=== PATIENT | male | born 1945 | race Caucasian/White ===

== ENCOUNTER 2018-01-17 09:07 | Day surgery (SDC) | payer OTHER, BC ==
[2018-01-08 15:48] VITALS: BMI 31.6
[2018-01-17] MEDS: TROPICAMIDE 1% OPHTH SOLN 15 ML BOTTLE ONE ×3 (09:50→10:00)
[2018-01-17] MEDS: PHENYLEPHRINE 2.5% OPHTH SOLN 15 ML BOTTLE ONE ×3 (09:50→10:00)
[2018-01-17] MEDS: CIPROFLOXACIN 0.3% EYE DROPS 5 ML BOTTLE ONE ×3 (09:50→10:00)
[2018-01-17] MEDS: CYCLOPENTOLATE 2% OPHTH SOLN 2 ML BOTTLE ONE ×3 (09:50→10:00)
[2018-01-17] MEDS ORDERED: MIDAZOLAM HCL 2 MG/2 ML SINGLE DOSE VIAL ONE (11:12)
[2018-01-17] MEDS ORDERED: CARBACHOL 0.01% INTRA-OCULAR 1.5 ML VIAL ONE (11:21)
[2018-01-17] MEDS ORDERED: NEO/POLYMYX B SULF/DEXAMETH OPHTHALMIC 5ML BOTTLE ONE (11:21)
[2018-01-17] MEDS ORDERED: BSS (NA/CA/MG/K) BALANCED SALT SOLUTION OPHTH SOLN 15 ML BOTTLE ONE (11:21)
[2018-01-17 12:46] VITALS: TEMP 98.1
[2018-01-17 13:12] VITALS: BP 123/59; PULSE 59
--- NOTE | 2018-01-17 13:19 | OP ---
DATE OF OPERATION: 01/17/2018 OPERATIVE PROCEDURE: Lens phacoemulsification with posterior chamber intraocular lens placement, right eye. PREOPERATIVE DIAGNOSIS: Visually significant cataract of right eye. POSTOPERATIVE DIAGNOSIS: Visually significant cataract of right eye. SURGEON: Ba Womack MD ANESTHESIA: MAC. PROCEDURE: The patient was brought to the operating room and placed under monitored anesthesia care by Anesthesia. A drop of tetracaine was then placed over the right eye. The patient was then prepped and draped in the usual sterile manner. A speculum was then placed over the right eye. The eye was then well irrigated with copious amounts of BSS (balanced salt solution). The operating microscope was then moved into position. A paracentesis was performed using a 15-degree blade. At this point 0.5 mL of 1% preservative-free lidocaine was injected into the anterior chamber. Amvisc Plus was then injected into the anterior chamber. A clear corneal incision was then formed using a 2.2-mm keratome. A capsulorrhexis was then performed in a continuous circular fashion beginning with a cystotome completed with an Utratas forceps. Hydrodissection was then performed using BSS on a cannula. The phaco probe was then introduced through the corneal wound and the cataract was removed using the phaco chop technique. Approximately 3 seconds of absolute phaco time was used. The remaining cortex was then removed using irrigation and aspiration with an I/A probe. The capsule was then filled with regular Amvisc and the capsule was noted to be intact. A previously selected foldable posterior chamber intraocular lens was then injected into the capsule through the corneal wound using a lens injector. It was then dialed into position using a Sinskey hook. The Amvisc was then removed using irrigation and aspiration. Miostat was then injected through the paracentesis to constrict the pupil. The paracentesis and corneal wound were then hydrated and noted to be watertight. A drop of Maxitrol was then placed over the eye. The speculum was removed and clear shield was taped over the eye. The patient tolerated the procedure well and there were no surgical complications. The patient was asked to follow up in my office the next day. BA WOMACK M.D. [id number]
== END 2018-01-17 13:10 | disposition home or self-care (01) ==
LOC: FASU 09:07
PROVIDERS: ATTEND Ophthalmology
PROC: 08RJ3JZ Replacement of Right Lens with Synthetic Substitute, Percutaneous Approach (ICD-10-PCS; principal; 2018-01-17 10:30)
DX: H26.8 Other specified cataract (principal)

== ENCOUNTER 2018-03-07 06:25 | Day surgery (SDC) | payer OTHER, BC ==
[2018-03-05 09:39] VITALS: BMI 31.6
[2018-03-07] MEDS ORDERED: TETRACAINE 0.5% OPHTH SOLN 2 ML BOTTLE ONE (07:17)
[2018-03-07] MEDS ORDERED: LIDOCAINE 1% P/F 10 MG/ML VIAL ONE (07:17)
[2018-03-07] MEDS ORDERED: BSS (NA/CA/MG/K) BALANCED SALT SOLUTION OPHTH SOLN 15 ML BOTTLE ONE (07:17)
[2018-03-07] MEDS ORDERED: CARBACHOL 0.01% INTRA-OCULAR 1.5 ML VIAL ONE (07:18)
[2018-03-07] MEDS ORDERED: EPINEPHrine/PF 1 MG/1 ML (1:1,000) AMPULE ONE (07:18)
[2018-03-07] MEDS ORDERED: NEO/POLYMYX B SULF/DEXAMETH OPHTHALMIC 5ML BOTTLE ONE (07:18)
[2018-03-07] MEDS: TROPICAMIDE 1% OPHTH SOLN 15 ML BOTTLE ONE ×3 (07:20→07:30)
[2018-03-07] MEDS: CIPROFLOXACIN 0.3% EYE DROPS 5 ML BOTTLE ONE ×3 (07:20→07:30)
[2018-03-07] MEDS: PHENYLEPHRINE 2.5% OPHTH SOLN 15 ML BOTTLE ONE ×3 (07:20→07:30)
[2018-03-07] MEDS: CYCLOPENTOLATE 2% OPHTH SOLN 2 ML BOTTLE ONE ×3 (07:20→07:30)
[2018-03-07] MEDS ORDERED: MIDAZOLAM HCL 2 MG/2 ML SINGLE DOSE VIAL ONE (08:05)
[2018-03-07 08:51] VITALS: TEMP 98.3
--- NOTE | 2018-03-07 09:02 | OP ---
DATE OF OPERATION: 03/07/2018 OPERATIVE PROCEDURE: Lens Phacoemulsification with Posterior Chamber Intraocular Lens Placement, Right Eye PREOPERATIVE DIAGNOSIS: Visually Significant Cataract of Right Eye POSTOPERATIVE DIAGNOSIS: Visually Significant Cataract of Right Eye SURGEON: Ba Womack M.D. ANESTHESIA: MAC ANESTHESIOLOGIST: PROCEDURE: The patient was brought to the operating room and placed under monitored anesthesia care by Anesthesia. A drop of Tetracaine was then placed over the right eye. The patient was then prepped and draped in the usual sterile manner. A speculum was then placed over the right eye. The eye was then well irrigated with copious amounts of BSS (balanced salt solution). The operating microscope was then moved into position. A paracentesis was performed using a 15 degree blade. At this point 0.5 mL of 1% preservative free-lidocaine was injected into the anterior chamber. Amvisc plus was then injected into the anterior chamber. A clear corneal incision was then formed using a 2.2 mm keratome. A capsulorrhexis was then performed in a continuous circular fashion beginning with a cystotome completed with an Utratas forceps. Hydrodissection was then performed using BSS on a cannula. The phaco probe was then introduced through the corneal wound and the cataract was removed using the phaco chop technique. Approximately 3 seconds of absolute phaco time was used. The remaining cortex was then removed using irrigation and aspiration with an I/A probe. The capsule was then filled with regular Amvisc and the capsule was noted to be intact. A previously selected foldable posterior chamber intraocular lens was then injected into the capsule through the corneal wound using a lens injector. It was then dialed into position using a Sinskey hook. The Amvisc was then removed using irrigation and aspiration. Miostat was then injected through the paracentesis to constrict the pupil. The paracentesis and corneal wound were then hydrated and noted to be water tight. A drop of Maxitrol was then placed over the eye. The speculum was removed and clear shield was taped over the eye. The patient tolerated the procedure well and there were no surgical complications. The patient was asked to follow up in my office the next day. BA WOMACK M.D. [id number]
[2018-03-07 09:19] VITALS: BP 127/78; PULSE 84
[2018-03-07] MEDS ORDERED: ACETAMINOPHEN 325 MG TABLET (FP) PO PRN (12:36)
[2018-03-07] MEDS ORDERED: ONDANSETRON 4 MG/2 ML VIAL IVPUSH PRN (12:36)
[2018-03-07] MEDS ORDERED: LACTATED RINGERS SOLUTION 1,000 ML IV SCH (12:45)
== END 2018-03-07 09:15 | disposition home or self-care (01) ==
LOC: FASU 06:25
PROVIDERS: ATTEND Ophthalmology
PROC: 08RJ3JZ Replacement of Right Lens with Synthetic Substitute, Percutaneous Approach (ICD-10-PCS; principal; 2018-03-07 08:21)
DX: H26.8 Other specified cataract (principal)

== ENCOUNTER 2024-08-25 19:01 | Inpatient (IN) | payer OTHER, BC ==
[2024-08-25 20:25] LABS: BASO % 0.5 % (0-2.0); HEMATOCRIT 34.2 % (35.4-49); HEMOGLOBIN 11.2 GM/dL (11.7-16.9); LYMPH % 8.8 % (8-40); MCH 31.4 pg (25.7-33.7); MCHC 32.7 g/dl (32.0-35.9); MEAN CELL VOLUME 95.8 fl (80-96); MEAN PLT VOLUME 7.3 fl (7.5-11.1); MONO % 7.4 % (3.8-10.2); NEUT % 82.3 % (42.8-82.8); PLATELET COUNT 313 10^3/uL (134-434); RBC 3.57 M/mm3 (4.00-5.60); RDW 14.4 % (11.9-15.9); WHITE BLOOD COUNT 13.7 K/mm3 (4.0-10.0)
[2024-08-25 20:36] LABS: INR 1.47 (0.83-1.09); PROTHROMBIN TIME (PATIENT) 16.4 SEC (9.7-13.0)
[2024-08-25 20:39] LABS: ACTIVATED PTT 30.9 SECONDS (25.2-36.5)
[2024-08-25 20:49] LABS: POTASSIUM 4.6 mmol/L (3.5-5.1)
[2024-08-25 20:51] LABS: CALCIUM 9.5 mg/dL (8.5-10.1)
[2024-08-25 20:52] LABS: ALBUMIN 3.5 g/dl (3.4-5.0); BLOOD UREA NITROGEN 29.8 mg/dL (7-18)
[2024-08-25 20:55] LABS: CREATININE 0.9 mg/dL (0.55-1.3)
[2024-08-25 20:56] LABS: BILIRUBIN,TOTAL 0.6 mg/dL (0.2-1); TOT PROT 6.4 g/dl (6.4-8.2)
[2024-08-25 21:00] LABS: N-TERMINAL BNP 511.5 pg/ml (5-450)
[2024-08-25] MEDS ORDERED: ACETAMINOPHEN INJECTION 100 ML ONE (21:22)
[2024-08-25] MEDS: ACETAMINOPHEN 1000 MG/100 ML BAG IVPB ONE (21:27)
[2024-08-25] MEDS: SODIUM CHLORIDE 0.9% 500 ML INFUS.BAG IV ONE (21:27)
[2024-08-25] MEDS ORDERED: KETOROLAC TROMETHAMINE 15 MG/ML VIAL ONE (22:36)
[2024-08-25] MEDS: KETOROLAC TROMETHAMINE 15 MG/ML VIAL IVPUSH ONE (22:43)
[2024-08-26] MEDS ORDERED: oxyCODONE HCL 5 MG TABLET ONE (01:48)
[2024-08-26] MEDS: oxyCODONE HCL 5 MG TABLET PO ONE ×2 (01:51→06:41)
[2024-08-26 02:11] LABS: EPI CELLS 5 /uL (0-25.1); HYALINE CASTS 0 /uL (0-3.1); URINE APPEARANCE TURBID; URINE BACTERIA >9,000 /uL (0-1359); URINE BILIRUBIN NEGATIVE (NEGATIVE); URINE COLOR DK YELLOW; URINE GLUCOSE (UA) NEGATIVE (NEGATIVE); URINE KETONE NEGATIVE (NEGATIVE); URINE LEUK ESTERASE 3+ (NEGATIVE); URINE NITRITE NEGATIVE (NEGATIVE); URINE PROTEIN 1+ (NEGATIVE); URINE RBC 64 /uL (0-23.9); URINE UROBILINOGEN 0.2 mg/dL (0.2-1.0); URINE WBC 5731 /uL (0-25.8)
[2024-08-26] MEDS ORDERED: CEFTRIAXONE 1 G/50 ML PREMIX 50 ML IVPB ONE (03:03)
[2024-08-26] MEDS: CEFTRIAXONE 1,000 MG in DEXTROSE 5%-WATER - 50 ML IVPB ONE (03:04)
[2024-08-26 05:24] LABS: YEAST NONE SEEN (NEGATIVE)
[2024-08-26 06:17] LABS: BASO % 0.3 % (0-2.0); EOS % 0.7 % (0-4.5); HEMATOCRIT 32.6 % (35.4-49); HEMOGLOBIN 10.6 GM/dL (11.7-16.9); LYMPH % 12.7 % (8-40); MCH 31.1 pg (25.7-33.7); MCHC 32.5 g/dl (32.0-35.9); MEAN CELL VOLUME 95.6 fl (80-96); MEAN PLT VOLUME 7.7 fl (7.5-11.1); NEUT % 77.3 % (42.8-82.8); PLATELET COUNT 291 10^3/uL (134-434); RBC 3.41 M/mm3 (4.00-5.60); RDW 14.2 % (11.9-15.9); RETICULOCYTES 0.86 % (0.5-1.5)
[2024-08-26 06:19] LABS: POTASSIUM 4.2 mmol/L (3.5-5.1)
[2024-08-26 06:21] LABS: CALCIUM 9.2 mg/dL (8.5-10.1)
[2024-08-26 06:22] LABS: ALBUMIN 3.1 g/dl (3.4-5.0)
[2024-08-26 06:24] LABS: CHOLESTEROL 112 mg/dL (50-200); IRON SERUM 28 ug/dL (50-175); TOTAL IRON BINDING CAPACITY 211 ug/dL (250-450)
[2024-08-26 06:25] LABS: CREATININE 0.7 mg/dL (0.55-1.3); PHOSPHOROUS 3.3 mg/dL (2.5-4.9)
[2024-08-26 06:25] LABS: LDL CHOLESTEROL (ONLY SJRH) 37 mg/dL (5-100)
[2024-08-26 06:26] LABS: BILIRUBIN,TOTAL 0.5 mg/dL (0.2-1)
[2024-08-26 06:27] LABS: HDL CHOLESTEROL 69 mg/dL (40-60)
[2024-08-26 06:27] LABS: TOT PROT 5.7 g/dl (6.4-8.2)
[2024-08-26] MEDS ORDERED: ENOXAPARIN NA (PORCINE) 40 MG/0.4 ML DISP.SYRIN SQ SCH (10:00)
[2024-08-26] MEDS ORDERED: FUROSEMIDE 20 MG TABLET (FP) PO SCH (10:00)
[2024-08-26] MEDS: APIXABAN 5 MG TABLET PO SCH (11:00)
[2024-08-26] MEDS: metoPROLOL SUCCINATE 25 MG TAB.SR.24H (FP) PO SCH (11:00)
[2024-08-26] MEDS: FUROSEMIDE 40 MG/4 ML INJECTABLE VIAL IVPUSH SCH (11:00)
[2024-08-26] MEDS: ALLOPURINOL 100 MG TABLET (FP) PO SCH (11:00)
[2024-08-26] MEDS: LOSARTAN POTASSIUM 50 MG TABLET PO SCH (11:00)
[2024-08-26] MEDS ORDERED: FUROSEMIDE 40 MG/4 ML INJECTABLE VIAL ONE (11:40)
[2024-08-26] MEDS ORDERED: PANTOPRAZOLE 40 MG TABLET PO ONE (11:55)
[2024-08-26] MEDS ORDERED: ENOXAPARIN NA (PORCINE) 40 MG/0.4 ML DISP.SYRIN SQ ONE (11:55)
[2024-08-26] MEDS: AZTREONAM 1 GM in DEXTROSE 5%-WATER - 50 ML IVPB SCH (17:57)
[2024-08-26] MEDS: DOXYCYCLINE HYCLATE 100 MG CAPSULE PO SCH (17:57)
[2024-08-26] MEDS: CEFTRIAXONE 1 G/50 ML PREMIX 50 ML IVPB SCH (19:01)
[2024-08-26] MEDS: ATORVASTATIN CA 40 MG TABLET (FP) PO SCH (21:46)
[2024-08-26] MEDS: GABAPENTIN 100 MG CAPSULE PO SCH (21:48)
[2024-08-26] MEDS: oxyCODONE HCL 5 MG TABLET PO PRN (22:01)
[2024-08-27] MEDS: PRAMIPEXOLE DIHYDROCHLORIDE 0.25 MG TABLET PO SCH (01:19)
[2024-08-27 11:33] LABS: BASO % 0.3 % (0-2.0); HEMATOCRIT 31.8 % (35.4-49); HEMOGLOBIN 10.5 GM/dL (11.7-16.9); LYMPH % 12.4 % (8-40); MCH 31.6 pg (25.7-33.7); MEAN CELL VOLUME 95.8 fl (80-96); MEAN PLT VOLUME 7.5 fl (7.5-11.1); MONO % 9.7 % (3.8-10.2); NEUT % 75.6 % (42.8-82.8); PLATELET COUNT 263 10^3/uL (134-434); RBC 3.32 M/mm3 (4.00-5.60); RDW 14.1 % (11.9-15.9); WHITE BLOOD COUNT 11.6 K/mm3 (4.0-10.0)
[2024-08-27 11:54] LABS: POTASSIUM 4.1 mmol/L (3.5-5.1)
[2024-08-27 11:56] LABS: ALBUMIN 2.9 g/dl (3.4-5.0); CALCIUM 9.1 mg/dL (8.5-10.1)
[2024-08-27 11:57] LABS: BLOOD UREA NITROGEN 24.4 mg/dL (7-18)
[2024-08-27 12:00] LABS: CREATININE 0.7 mg/dL (0.55-1.3)
[2024-08-27 12:01] LABS: BILIRUBIN,TOTAL 0.6 mg/dL (0.2-1)
[2024-08-27 12:03] LABS: TOT PROT 5.6 g/dl (6.4-8.2)
[2024-08-27] MEDS: CEFTRIAXONE 1 GM in DEXTROSE 5%-WATER - 50 ML IVPB SCH (12:22)
[2024-08-27] MEDS: CEFTRIAXONE 1 G/50 ML PREMIX 50 ML IVPB SCH (12:36)
[2024-08-27] MEDS ORDERED: MEROPENEM 1 GM in DEXTROSE 5%-WATER 100 ML IVPB SCH (16:19)
[2024-08-27] MEDS: MEROPENEM-0.9% SODIUM CHLORIDE 1 GM/50 ML BAG IVPB SCH (17:55)
[2024-08-27] MEDS: KETOCONAZOLE 2 % SHAMPOO 120 ML BOTTLE TP SCH (17:56)
[2024-08-27] MEDS: HYDROCORTISONE 1% TOPICAL CREAM 30 GM TUBE TP SCH (21:18)
[2024-08-28 07:54] LABS: HEMATOCRIT 31.9 % (35.4-49); HEMOGLOBIN 10.6 GM/dL (11.7-16.9); MCH 31.7 pg (25.7-33.7); MCHC 33.1 g/dl (32.0-35.9); MEAN CELL VOLUME 95.9 fl (80-96); MEAN PLT VOLUME 7.8 fl (7.5-11.1); PLATELET COUNT 250 10^3/uL (134-434); RBC 3.33 M/mm3 (4.00-5.60); RDW 14.1 % (11.9-15.9); WHITE BLOOD COUNT 11.9 K/mm3 (4.0-10.0)
[2024-08-28 08:11] LABS: POTASSIUM 3.8 mmol/L (3.5-5.1)
[2024-08-28 08:15] LABS: ALBUMIN 2.7 g/dl (3.4-5.0); CALCIUM 8.6 mg/dL (8.5-10.1)
[2024-08-28 08:16] LABS: MAGNESIUM 1.8 mg/dL (1.8-2.4)
[2024-08-28 08:18] LABS: CREATININE 0.7 mg/dL (0.55-1.3); PHOSPHOROUS 2.9 mg/dL (2.5-4.9)
[2024-08-28 08:20] LABS: BILIRUBIN,TOTAL 0.6 mg/dL (0.2-1); TOT PROT 5.3 g/dl (6.4-8.2)
[2024-08-28] MEDS ORDERED: AMMONIUM LACTATE 12% LOTION 225 GM BOTTLE TP PRN (09:56)
[2024-08-28] MEDS: metoPROLOL SUCCINATE 25 MG TAB.SR.24H (FP) PO SCH (11:21)
[2024-08-28] MEDS: ACETAMINOPHEN 500 MG TABLET (FP) PO PRN (11:22)
[2024-08-28] MEDS: MEROPENEM 1 GM in DEXTROSE 5%-WATER 100 ML IVPB SCH (16:54)
[2024-08-28] MEDS ORDERED: MEROPENEM 1 GM in DEXTROSE 5%-WATER 100 ML IVPB SCH (18:00)
[2024-08-28] MEDS ORDERED: MEROPENEM-0.9% SODIUM CHLORIDE 1 GM/50 ML BAG IVPB SCH (18:00)
[2024-08-28] MEDS: MEROPENEM-0.9% SODIUM CHLORIDE 1 GM/50 ML BAG IVPB SCH (18:42)
[2024-08-28] MEDS: DOXYCYCLINE HYCLATE 100 MG CAPSULE PO SCH (18:42)
[2024-08-28] MEDS: oxyCODONE HCL 5 MG TABLET PO PRN (18:50)
[2024-08-28] MEDS: ALLOPURINOL 100 MG TABLET (FP) PO SCH (21:53)
[2024-08-28] MEDS: PRAMIPEXOLE DIHYDROCHLORIDE 0.25 MG TABLET PO SCH (21:53)
[2024-08-28] MEDS: ATORVASTATIN CA 40 MG TABLET (FP) PO SCH (21:53)
[2024-08-28] MEDS: APIXABAN 5 MG TABLET PO SCH (21:53)
[2024-08-28] MEDS: HYDROCORTISONE 1% TOPICAL CREAM 30 GM TUBE TP SCH (21:54)
[2024-08-28] MEDS: GABAPENTIN 100 MG CAPSULE PO SCH (21:54)
[2024-08-29 08:41] LABS: HEMATOCRIT 32.7 % (35.4-49); HEMOGLOBIN 10.8 GM/dL (11.7-16.9); MCH 31.7 pg (25.7-33.7); MCHC 33.1 g/dl (32.0-35.9); MEAN CELL VOLUME 95.6 fl (80-96); MEAN PLT VOLUME 7.9 fl (7.5-11.1); PLATELET COUNT 257 10^3/uL (134-434); RBC 3.42 M/mm3 (4.00-5.60); RDW 14.5 % (11.9-15.9); WHITE BLOOD COUNT 10.6 K/mm3 (4.0-10.0)
[2024-08-29 08:54] LABS: POTASSIUM 3.9 mmol/L (3.5-5.1)
[2024-08-29 09:01] LABS: ALBUMIN 2.6 g/dl (3.4-5.0); BLOOD UREA NITROGEN 20.6 mg/dL (7-18); MAGNESIUM 1.9 mg/dL (1.8-2.4)
[2024-08-29 09:03] LABS: CREATININE 0.7 mg/dL (0.55-1.3)
[2024-08-29 09:04] LABS: PHOSPHOROUS 2.6 mg/dL (2.5-4.9)
[2024-08-29 09:05] LABS: BILIRUBIN,TOTAL 0.5 mg/dL (0.2-1); TOT PROT 5.3 g/dl (6.4-8.2)
[2024-08-29] MEDS: FUROSEMIDE 40 MG/4 ML INJECTABLE VIAL IVPUSH SCH (09:39)
[2024-08-29] MEDS: metoPROLOL SUCCINATE 25 MG TAB.SR.24H (FP) PO SCH (09:40)
[2024-08-29] MEDS: ACETAMINOPHEN 500 MG TABLET (FP) PO PRN (12:21)
[2024-08-30 14:33] VITALS: BMI 25.8
[2024-08-30] MEDS: KETOCONAZOLE 2 % SHAMPOO 120 ML BOTTLE TP SCH (15:03)
[2024-08-30] MEDS: oxyCODONE HCL 5 MG TABLET PO PRN (17:36)
[2024-08-30] MEDS ORDERED: PRAMIPEXOLE DIHYDROCHLORIDE 0.5 MG TABLET PO SCH (22:00)
[2024-08-30] MEDS: PRAMIPEXOLE DIHYDROCHLORIDE 0.25 MG TABLET PO SCH (22:46)
[2024-08-30] MEDS: BACITRACIN ZINC 15 GM TUBE TOPICAL OINTMENT TP SCH (22:46)
[2024-08-31] MEDS: AMMONIUM LACTATE 12% LOTION 225 GM BOTTLE TP PRN (09:48)
[2024-08-31 10:51] LABS: BASO % 0.7 % (0-2.0); EOS % 3.4 % (0-4.5); HEMATOCRIT 33.4 % (35.4-49); HEMOGLOBIN 11.1 GM/dL (11.7-16.9); LYMPH % 17.9 % (8-40); MCH 31.8 pg (25.7-33.7); MCHC 33.2 g/dl (32.0-35.9); MEAN CELL VOLUME 95.7 fl (80-96); MEAN PLT VOLUME 7.8 fl (7.5-11.1); MONO % 8.7 % (3.8-10.2); NEUT % 69.3 % (42.8-82.8); PLATELET COUNT 273 10^3/uL (134-434); RBC 3.49 M/mm3 (4.00-5.60); RDW 14.2 % (11.9-15.9); WHITE BLOOD COUNT 9.4 K/mm3 (4.0-10.0)
[2024-08-31 11:08] LABS: POTASSIUM 3.7 mmol/L (3.5-5.1)
[2024-08-31 11:33] LABS: ALBUMIN 2.8 g/dl (3.4-5.0); CALCIUM 9.2 mg/dL (8.5-10.1); MAGNESIUM 1.8 mg/dL (1.8-2.4)
[2024-08-31 11:35] LABS: BLOOD UREA NITROGEN 20.2 mg/dL (7-18)
[2024-08-31 11:37] LABS: CREATININE 0.6 mg/dL (0.55-1.3)
[2024-08-31 11:38] LABS: BILIRUBIN,TOTAL 0.6 mg/dL (0.2-1); TOT PROT 5.7 g/dl (6.4-8.2)
[2024-08-31] MEDS: PRAMIPEXOLE DIHYDROCHLORIDE 0.25 MG TABLET PO SCH (18:08)
[2024-08-31] MEDS: PRAMIPEXOLE DIHYDROCHLORIDE 0.5 MG TABLET PO SCH (21:29)
[2024-09-01 10:19] LABS: BASO % 0.6 % (0-2.0); EOS % 1.4 % (0-4.5); HEMATOCRIT 32.4 % (35.4-49); HEMOGLOBIN 10.8 GM/dL (11.7-16.9); LYMPH % 15.9 % (8-40); MCH 31.9 pg (25.7-33.7); MCHC 33.4 g/dl (32.0-35.9); MEAN CELL VOLUME 95.6 fl (80-96); MONO % 7.9 % (3.8-10.2); NEUT % 74.2 % (42.8-82.8); PLATELET COUNT 275 10^3/uL (134-434); RBC 3.38 M/mm3 (4.00-5.60); RDW 14.1 % (11.9-15.9); WHITE BLOOD COUNT 11.1 K/mm3 (4.0-10.0)
[2024-09-01 10:39] LABS: POTASSIUM 3.9 mmol/L (3.5-5.1)
[2024-09-01 10:48] LABS: ALBUMIN 2.9 g/dl (3.4-5.0); BLOOD UREA NITROGEN 25.2 mg/dL (7-18); MAGNESIUM 1.8 mg/dL (1.8-2.4)
[2024-09-01 10:52] LABS: CREATININE 0.7 mg/dL (0.55-1.3)
[2024-09-01 10:53] LABS: BILIRUBIN,TOTAL 0.6 mg/dL (0.2-1); TOT PROT 5.7 g/dl (6.4-8.2)
[2024-09-01] MEDS: LIDOCAINE 5% TOPICAL PATCH TP SCH (12:37)
[2024-09-01] MEDS: FAMOTIDINE 20 MG TABLET PO ONE (12:42)
[2024-09-01] MEDS: LIDOCAINE PATCH REMOVAL MC SCH (21:55)
[2024-09-02] MEDS: oxyCODONE HCL 5 MG TABLET PO PRN (02:14)
[2024-09-02 09:38] VITALS: RESP 20
[2024-09-02] MEDS: FUROSEMIDE 40 MG TABLET (FP) PO SCH (09:50)
[2024-09-02 11:22] LABS: BASO % 1.2 % (0-2.0); EOS % 3.4 % (0-4.5); HEMATOCRIT 32.1 % (35.4-49); HEMOGLOBIN 11.2 GM/dL (11.7-16.9); LYMPH % 21.4 % (8-40); MCH 32.8 pg (25.7-33.7); MCHC 34.8 g/dl (32.0-35.9); MEAN CELL VOLUME 94.3 fl (80-96); MEAN PLT VOLUME 8.1 fl (7.5-11.1); MONO % 8.5 % (3.8-10.2); NEUT % 65.5 % (42.8-82.8); PLATELET COUNT 253 10^3/uL (134-434); RBC 3.41 M/mm3 (4.00-5.60); RDW 14.1 % (11.9-15.9); WHITE BLOOD COUNT 8.6 K/mm3 (4.0-10.0)
[2024-09-02 11:41] LABS: CALCIUM 9.6 mg/dL (8.5-10.1)
[2024-09-02 11:43] LABS: ALBUMIN 2.9 g/dl (3.4-5.0); BLOOD UREA NITROGEN 22.5 mg/dL (7-18)
[2024-09-02 11:45] LABS: BILIRUBIN,TOTAL 0.5 mg/dL (0.2-1)
[2024-09-02 11:46] LABS: CREATININE 0.6 mg/dL (0.55-1.3)
[2024-09-02 11:47] LABS: TOT PROT 5.7 g/dl (6.4-8.2)
[2024-09-02] MEDS: DOCUSATE SODIUM 100 MG CAPSULE (FP) PO SCH (14:15)
[2024-09-02] MEDS: BISACODYL 10 MG SUPP.RECT PR ONE (14:15)
[2024-09-02 23:38] VITALS: BP 114/74; PULSE 68; TEMP 97.5
== END 2024-09-03 02:10 | DRG 312 ==
LOC: JER 19:01 → JERBED 22:43 → OBSVTOIN 08-26 08:15 → J4W 08-26 16:42 → J8W 08-28 15:56
PROVIDERS: ADMIT Internal Medicine; ATTEND Nurse Practitioner Family
DX: R55 Syncope and collapse (principal); N39.0 Urinary tract infection, site not specified; G95.89 Other specified diseases of spinal cord; L03.116 Cellulitis of left lower limb; L03.115 Cellulitis of right lower limb; I48.91 Unspecified atrial fibrillation; E78.5 Hyperlipidemia, unspecified; M54.50 Low back pain, unspecified; M10.9 Gout, unspecified; I87.2 Venous insufficiency (chronic) (peripheral); R60.0 Localized edema; E86.0 Dehydration; S90.424A Blister (nonthermal), right lesser toe(s), initial encounter; M54.16 Radiculopathy, lumbar region; I10 Essential (primary) hypertension; I35.0 Nonrheumatic aortic (valve) stenosis; G25.81 Restless legs syndrome; G20.A1 Parkinson's disease without dyskinesia, without mention of fluctuations; L89.622 Pressure ulcer of left heel, stage 2; L89.152 Pressure ulcer of sacral region, stage 2; E55.9 Vitamin D deficiency, unspecified; Z96.641 Presence of right artificial hip joint; Z88.0 Allergy status to penicillin; X58.XXXA Exposure to other specified factors, initial encounter; Y93.9 Activity, unspecified; Y92.9 Unspecified place or not applicable; Y99.9 Unspecified external cause status
CPT/HCPCS: 36415; 70450-TC; 71045-TC-FY; 72125-TC; 80053; 80061; 81003; 82607; 82728; 83540; 83550; 83735; 83880; 84100; 84443; 84466; 84484; 85025; 85027; 85045; 85610; 85730; 86850; 86900; 86901; 87086; 87635; 93005; 93010; 93306-TC; 93308; 93880-TC; 93970-TC; 97116-GP; 97162-GP; 99285-25; G0378; J0131